=== PATIENT | male | born 1955 | race Hispanic/Latino ===

== ENCOUNTER → 2018-03-13 | Outpatient (CLI) | payer OTHER, MEDICARE ==
[~2018-03-13] VITALS: Ht 167.6 cm; Wt 107.0 kg
[~2018-03-13] MED LIST: REGADENOSON 0.4 MG/5 ML PF SYG IVP SCH
== END | disposition home or self-care (01) ==
LOC: SHCH 11:00
PROVIDERS: ATTEND Internal Medicine Cardiovascular Disease
DX: I25.10 Atherosclerotic heart disease of native coronary artery without angina pectoris (principal); I25.89 Other forms of chronic ischemic heart disease
CPT/HCPCS: 78452; 93017; 96374; A9500 ×2; J2785

== ENCOUNTER → 2021-06-12 | Outpatient (CLI) | payer OTHER, MEDICARE | END | disposition home or self-care (01) | LOC: SLP 20:30 | PROVIDERS: ATTEND Family Medicine | DX: G47.33 Obstructive sleep apnea (adult) (pediatric) (principal) | CPT/HCPCS: 95810; 95811 ==

== ENCOUNTER → 2021-07-04 | Outpatient (CLI) | payer OTHER, MEDICARE | END | disposition home or self-care (01) | LOC: SLP 20:41 | PROVIDERS: ATTEND Family Medicine | DX: G47.33 Obstructive sleep apnea (adult) (pediatric) (principal) | CPT/HCPCS: 95811 ==

== ENCOUNTER 2022-03-08 12:46 | Observation (INO) | payer OTHER, MEDICARE ==
[~2022-03-08] VITALS: Ht 167.6 cm; Wt 109.0 kg
[2022-03-08] MEDS ORDERED: SOLU-MEDROL 125MG VIAL ONE (12:49)
[2022-03-08] MEDS ORDERED: EPINEPHRINE PF 1MG (1:1,000) 1 MG/ML AMP ONE (12:49)
[2022-03-08] MEDS ORDERED: AMIODARONE 150MG VIAL IV STA ×2 (13:21)
[2022-03-08 13:23] LABS: BASOPHILS % (AUTO) 0.3 % (0.0-5.0); EOSINOPHILS % (AUTO) 1.4 % (0.0-8.0); HEMATOCRIT 55.5 % (42-54); LYMPHOCYTES % (AUTO) 50.3 % (21.0-51.0); MEAN CORPUSCULAR HEMOGLOBIN 32.2 pg (27.0-33.0); MEAN CORPUSCULAR HGB CONC 35.1 g/dL (32.0-36.0); MEAN CORPUSCULAR VOLUME 91.7 fL (79-99); MONOCYTES % (AUTO) 4.2 % (3.0-13.0); NEUTROPHILS % (AUTO) 43.5 % (40.0-77.0); PLATELET COUNT (AUTO) 231 K/uL (130-400); RED BLOOD CELL COUNT(AUTO) 6.05 MIL/uL (4.50-6.20); RED CELL DISTRIBUTION WIDTH 12.9 % (11.0-15.5); WHITE BLOOD COUNT (AUTO) 11.3 K/uL (4.8-10.8)
[2022-03-08] MEDS ORDERED: FAMOTIDINE 20MG VIAL IV ONE (13:30)
[2022-03-08] MEDS ORDERED: 0.9%NACL 1000ML 1,000 ML IV STA (13:37)
[2022-03-08 14:02] LABS: B-TYPE NATRIURETIC PEPTIDE 34 pg/mL (0-100)
[2022-03-08 14:08] LABS: ALBUMIN 3.3 g/dL (3.5-5.0); CREATININE 1.8 mg/dL (0.5-1.5); MAGNESIUM 2.1 mg/dL (1.80-2.40); POTASSIUM 3.6 mmol/L (3.5-5.1); TOTAL PROTEIN, SERUM 7.1 g/dL (6.0-8.3)
[2022-03-08] MEDS ORDERED: ONDANSETRON 4MG INJ ONE (14:41)
[2022-03-08] MEDS ORDERED: ONDANSETRON 4MG INJ IVP ONE (15:00)
[2022-03-08] MEDS: DiphenhydrAMINE HCL 50 MG/ML VIAL IV SCH ×2 (15:57→20:50)
[2022-03-08] MEDS: SOLU-MEDROL 125MG VIAL IVP SCH ×2 (15:58→20:50)
[2022-03-08] MEDS ORDERED: HYDRALAZINE 20MG/ML VIAL IV PRN (16:00)
[2022-03-08] MEDS ORDERED: ONDANSETRON 4MG INJ IVP PRN (16:00)
[2022-03-08] MEDS ORDERED: LACTULOSE 20 GM/30 ML UDCUP PO PRN (16:00)
[2022-03-08] MEDS ORDERED: EPINEPHRINE 1MG/10ML(1:10,000) 0.1 MG/ML SYG IVP PRN (16:00)
[2022-03-08] MEDS ORDERED: ACETAMINOPHEN 325 MG TAB PO PRN (16:00)
[2022-03-08] MEDS ORDERED: LABETALOL 20MG SYG IV PRN (16:00)
[2022-03-08] MEDS: INSULIN HUMULIN R 100 UNIT/ML 3ML SQ SCH ×2 (16:16→21:15)
[2022-03-08 17:22] LABS: APPEARANCE,URINE CLEAR (CLEAR); BILIRUBIN,URINE NEGATIVE (NEGATIVE); COLOR,URINE YELLOW (YELLOW); GLUCOSE, URINE (UA) >=1000 mg/dL (NEGATIVE); KETONES,URINE 5 mg/dL (NEGATIVE); LEUKOCYTE ESTERASE ,URINE NEGATIVE Leu/uL (NEGATIVE); NITRATE,URINE NEGATIVE (NEGATIVE); OCCULT BLOOD,URINE TRACE-INTACT (NEGATIVE); PROTEIN,URINE 30 mg/dL (NEGATIVE); UROBILINOGEN,URINE 0.2 mg/dL (0.2-1.0)
[2022-03-08 17:31] LABS: BACTERIA,URINE None Seen /HPF (None Seen); WBC,URINE 0-1 /HPF (0-1)
[2022-03-08 17:32] LABS: MUCUS,URINE Rare LPF (None Seen); SQUAMOUS EPITHELIAL CELL,UR Rare /HPF (0-2)
[2022-03-08 18:44] VITALS: BP 82/58
[2022-03-08] MEDS: IPRATROPIUM/ALBUTEROL SULFATE 3 ML SOLUTION IH SCH ×2 (18:52→22:43)
[2022-03-08 19:50] VITALS: BP 104/60
[2022-03-08] MEDS ORDERED: FAMOTIDINE 20MG TAB PO SCH (21:00)
[2022-03-08] MEDS ORDERED: EMPA10TA PO (21:00)
[2022-03-08] MEDS ORDERED: METO50 PO (21:00)
[2022-03-08] MEDS ORDERED: METO50TA18 PO (21:00)
[2022-03-08] MEDS ORDERED: RIVA20TA PO (21:05)
[2022-03-08] MEDS ORDERED: GLIP1TAB5 PO (21:05)
[2022-03-08] MEDS ORDERED: LISI5TAB21 PO (21:05)
[2022-03-08] MEDS ORDERED: POTA-202 PO (21:05)
[2022-03-08] MEDS ORDERED: NITR0.4T50 SL (21:11)
[2022-03-08] MEDS ORDERED: ATOR10TA69 PO (21:11)
[2022-03-08] MEDS ORDERED: ALLO100T PO (21:11)
[2022-03-08 23:44] VITALS: BP 98/56
[2022-03-09] MEDS: IPRATROPIUM/ALBUTEROL SULFATE 3 ML SOLUTION IH SCH ×6 (02:12→22:21)
[2022-03-09 03:36] VITALS: BP 97/46
[2022-03-09 04:44] LABS: BASOPHILS % (AUTO) 0.1 % (0.0-5.0); EOSINOPHILS % (AUTO) 0.1 % (0.0-8.0); LYMPHOCYTES % (AUTO) 10.7 % (21.0-51.0); MEAN CORPUSCULAR HGB CONC 34.2 g/dL (32.0-36.0); MEAN CORPUSCULAR VOLUME 93.5 fL (79-99); MONOCYTES % (AUTO) 2.6 % (3.0-13.0); NEUTROPHILS % (AUTO) 86.2 % (40.0-77.0); PLATELET COUNT (AUTO) 193 K/uL (130-400); RED BLOOD CELL COUNT(AUTO) 5.35 MIL/uL (4.50-6.20); WHITE BLOOD COUNT (AUTO) 9.6 K/uL (4.8-10.8)
[2022-03-09] MEDS: SOLU-MEDROL 125MG VIAL IVP SCH ×4 (04:51→22:35)
[2022-03-09] MEDS: DiphenhydrAMINE HCL 50 MG/ML VIAL IV SCH ×4 (04:51→22:35)
[2022-03-09 05:07] LABS: CREATININE 1.9 mg/dL (0.5-1.5); MAGNESIUM 2.1 mg/dL (1.80-2.40); PHOSPHORUS 3.1 mg/dL (2.5-4.9); POTASSIUM 5.2 mmol/L (3.5-5.1); THYROID STIMULATING HORMONE 0.77 uIU/mL (0.36-3.74)
[2022-03-09 05:18] LABS: B-TYPE NATRIURETIC PEPTIDE 499 pg/mL (0-100)
[2022-03-09] MEDS: INSULIN HUMULIN R 100 UNIT/ML 3ML SQ SCH ×4 (06:33→20:11)
[2022-03-09] MEDS ORDERED: NITROGLYCERIN 0.4 MG SL TAB SL PRN (07:30)
[2022-03-09 08:46] VITALS: BP 117/77
[2022-03-09] MEDS ORDERED: CEFTRIAXONE 1G VIAL IVP SCH (09:00)
[2022-03-09] MEDS ORDERED: ENOXAPARIN SODIUM 40 MG/0.4 ML SYRINGE SQ SCH (09:00)
[2022-03-09] MEDS: FAMOTIDINE 20MG TAB PO SCH (09:08)
[2022-03-09] MEDS: RIVAROXABAN 20 MG TABLET PO SCH (09:08)
[2022-03-09] MEDS: ALLOPURINOL 100 MG TABLET PO SCH ×2 (09:08→20:05)
[2022-03-09] MEDS: METOPROLOL TARTRATE 50 MG TAB PO SCH (09:09)
[2022-03-09 10:12] LABS: APPEARANCE,URINE CLEAR (CLEAR); BILIRUBIN,URINE NEGATIVE (NEGATIVE); COLOR,URINE COLORLESS (YELLOW); GLUCOSE, URINE (UA) >=1000 mg/dL (NEGATIVE); KETONES,URINE NEGATIVE (NEGATIVE); LEUKOCYTE ESTERASE ,URINE NEGATIVE Leu/uL (NEGATIVE); NITRATE,URINE NEGATIVE (NEGATIVE); OCCULT BLOOD,URINE SMALL (NEGATIVE); PROTEIN,URINE 10 mg/dL (NEGATIVE); UROBILINOGEN,URINE 0.2 mg/dL (0.2-1.0)
[2022-03-09 10:31] LABS: RBC,URINE 0-1 /HPF (0-1); SQUAMOUS EPITHELIAL CELL,UR RARE /HPF (0-2); WBC,URINE 0-1 /HPF (0-1)
[2022-03-09 12:20] VITALS: BP 111/72
[2022-03-09 16:54] VITALS: BP 114/73
[2022-03-09] MEDS: 0.9%NACL 1000ML 1,000 ML IV SCH (17:42)
[2022-03-09 20:17] VITALS: BP 108/67
[2022-03-09] MEDS ORDERED: METOPROLOL TARTRATE 50 MG TAB PO SCH (21:00)
[2022-03-09] MEDS ORDERED: ATORVASTATIN 10 MG TABLET PO SCH (21:00)
[2022-03-09 23:45] VITALS: BP 93/54
[2022-03-10] MEDS: IPRATROPIUM/ALBUTEROL SULFATE 3 ML SOLUTION IH SCH ×2 (01:52→06:27)
[2022-03-10 03:45] VITALS: BP 94/45
[2022-03-10 03:49] LABS: HEMATOCRIT 42.3 % (42-54); MEAN CORPUSCULAR HEMOGLOBIN 31.9 pg (27.0-33.0); MEAN CORPUSCULAR VOLUME 93.8 fL (79-99); RED BLOOD CELL COUNT(AUTO) 4.51 MIL/uL (4.50-6.20); RED CELL DISTRIBUTION WIDTH 13.3 % (11.0-15.5); WHITE BLOOD COUNT (AUTO) 9.3 K/uL (4.8-10.8)
[2022-03-10 03:55] LABS: CREATININE 1.6 mg/dL (0.5-1.5); POTASSIUM 4.1 mmol/L (3.5-5.1)
[2022-03-10] MEDS: SOLU-MEDROL 125MG VIAL IVP SCH ×2 (04:00→09:16)
[2022-03-10] MEDS: DiphenhydrAMINE HCL 50 MG/ML VIAL IV SCH ×2 (04:00→09:18)
[2022-03-10] MEDS: 0.9%NACL 1000ML 1,000 ML IV SCH (06:20)
[2022-03-10] MEDS: INSULIN HUMULIN R 100 UNIT/ML 3ML SQ SCH ×2 (06:22→12:07)
[2022-03-10 07:09] VITALS: BP 101/60
[2022-03-10] MEDS: METOPROLOL TARTRATE 50 MG TAB PO SCH (09:17)
[2022-03-10] MEDS: FAMOTIDINE 20MG TAB PO SCH (09:17)
[2022-03-10] MEDS: ALLOPURINOL 100 MG TABLET PO SCH (09:17)
[2022-03-10] MEDS: RIVAROXABAN 20 MG TABLET PO SCH (09:18)
[2022-03-10] MEDS ORDERED: IPRATROPIUM/ALBUTEROL SULFATE 3 ML SOLUTION IH SCH (12:00)
[2022-03-10 12:23] VITALS: BP 100/63
[2022-03-10] MEDS ORDERED: METH4TAB3 PO (14:58)
== END 2022-03-10 15:50 | disposition home or self-care (01) ==
LOC: EDH 12:46 → EDHIP 15:38 → 4AH 18:42
PROVIDERS: ADMIT Internal Medicine Critical Care Medicine; ATTEND Internal Medicine Critical Care Medicine
DX: T63.441A Toxic effect of venom of bees, accidental (unintentional), initial encounter (principal); T78.2XXA Anaphylactic shock, unspecified, initial encounter; L50.9 Urticaria, unspecified; I48.20 Chronic atrial fibrillation, unspecified; N17.9 Acute kidney failure, unspecified; D75.1 Secondary polycythemia; E11.9 Type 2 diabetes mellitus without complications; R31.9 Hematuria, unspecified; I11.0 Hypertensive heart disease with heart failure; I50.30 Unspecified diastolic (congestive) heart failure; I44.7 Left bundle-branch block, unspecified; I47.20 Ventricular tachycardia, unspecified; I25.10 Atherosclerotic heart disease of native coronary artery without angina pectoris; M10.9 Gout, unspecified; E88.09 Other disorders of plasma-protein metabolism, not elsewhere classified; E11.65 Type 2 diabetes mellitus with hyperglycemia; E66.01 Morbid (severe) obesity due to excess calories; E78.5 Hyperlipidemia, unspecified; Z68.38 Body mass index [BMI] 38.0-38.9, adult; Z79.01 Long term (current) use of anticoagulants; Z95.0 Presence of cardiac pacemaker; Z95.5 Presence of coronary angioplasty implant and graft; Z79.899 Other long term (current) drug therapy; Z98.890 Other specified postprocedural states
CPT/HCPCS: 96374; 96372 ×3; 96375; 83735 ×2; 84484; 80053; 83880 ×2; 85025 ×2; 82948 ×8; 81001 ×2; 36415 ×3; 71045; 99291; 93005; 94640 ×9; 94660 ×2; 94664; 96376 ×2; 84443; 84100; 84132; 80048 ×2; 83605; 93306; 92610; 84145; 85027; G0378 ×44; J1200 ×6; J3490; J2930 ×7; J0171; J2405; J1815 ×6

== ENCOUNTER → 2023-02-21 | Outpatient (CLI) | payer OTHER, MEDICARE ==
[~2023-02-21] VITALS: Ht 167.6 cm; Wt 104.8 kg
[~2023-02-21] MED LIST changes: +ALLO100T PO; +ATOR10TA69 PO; +EMPA10TA PO; +GLIP1TAB5 PO; +METH4TAB3 PO; +METO50 PO; +METO50TA18 PO; +NITR0.4T50 SL; +POTA-202 PO; -REGADENOSON 0.4 MG/5 ML PF SYG IVP SCH; +RIVA20TA PO
[2023-02-21 14:29] LABS: BASOPHILS # (AUTO) 0.04 K/uL (0.00-0.20); BASOPHILS % (AUTO) 0.6 % (0.0-5.0); EOSINOPHILS # (AUTO) 0.12 K/uL (0.00-0.70); EOSINOPHILS % (AUTO) 1.8 % (0.0-8.0); HEMATOCRIT 49.2 % (42-54); IMMATURE GRANULOCYTE ABSOLUTE 0.01 K/uL (0-1); LYMPHOCYTES # (AUTO) 2.3 K/uL (1.0-4.8); LYMPHOCYTES % (AUTO) 33.7 % (21.0-51.0); MEAN CORPUSCULAR HGB CONC 33.5 g/dL (32.0-36.0); MEAN CORPUSCULAR VOLUME 92.3 fL (79-99); MONOCYTES # (AUTO) 0.6 K/uL (0.1-1.0); MONOCYTES % (AUTO) 8.2 % (3.0-13.0); NEUTROPHILS # (AUTO) 3.8 K/uL (1.8-7.7); NEUTROPHILS % (AUTO) 55.6 % (40.0-77.0); PLATELET COUNT (AUTO) 174 K/uL (130-400); RED BLOOD CELL COUNT(AUTO) 5.33 MIL/uL (4.50-6.20); RED CELL DISTRIBUTION WIDTH 13.2 % (11.0-15.5); WHITE BLOOD COUNT (AUTO) 6.9 K/uL (4.8-10.8)
[2023-02-21 14:39] LABS: CREATININE 1.2 mg/dL (0.5-1.5); INR 1.03 (0.85-1.15); POTASSIUM 4.2 mmol/L (3.5-5.1); PROTHROMBIN TIME 11.9 SEC (9.6-11.6)
[2023-02-21 14:40] LABS: PARTIAL THROMBOPLASTIN TIME 29.6 SEC (26.3-35.5)
[2023-02-21 15:01] VITALS: BP 119/77; PULSE 66; RESP 18
== END | disposition home or self-care (01) ==
LOC: DAH 10:00 → EDSTATUS 13:00
PROVIDERS: ATTEND Internal Medicine Cardiovascular Disease
DX: Z01.818 Encounter for other preprocedural examination (principal); I49.5 Sick sinus syndrome; Z79.01 Long term (current) use of anticoagulants
CPT/HCPCS: 36415; 80048; 85025; 85610; 85730; 93005

== ENCOUNTER 2023-03-17 06:38 | Day surgery (SDC) | payer OTHER ==
[2023-03-15 08:51] LABS: BASOPHILS # (AUTO) 0.03 K/uL (0.00-0.20); BASOPHILS % (AUTO) 0.5 % (0.0-5.0); EOSINOPHILS # (AUTO) 0.11 K/uL (0.00-0.70); HEMATOCRIT 49.7 % (42-54); IMMATURE GRANULOCYTE ABSOLUTE 0.01 K/uL (0-1); LYMPHOCYTES # (AUTO) 1.9 K/uL (1.0-4.8); LYMPHOCYTES % (AUTO) 33.9 % (21.0-51.0); MEAN CORPUSCULAR HEMOGLOBIN 30.8 pg (27.0-33.0); MEAN CORPUSCULAR HGB CONC 33.2 g/dL (32.0-36.0); MEAN CORPUSCULAR VOLUME 92.7 fL (79-99); MONOCYTES # (AUTO) 0.4 K/uL (0.1-1.0); MONOCYTES % (AUTO) 6.8 % (3.0-13.0); NEUTROPHILS # (AUTO) 3.1 K/uL (1.8-7.7); NEUTROPHILS % (AUTO) 56.6 % (40.0-77.0); PLATELET COUNT (AUTO) 156 K/uL (130-400); RED BLOOD CELL COUNT(AUTO) 5.36 MIL/uL (4.50-6.20); RED CELL DISTRIBUTION WIDTH 13.3 % (11.0-15.5); WHITE BLOOD COUNT (AUTO) 5.5 K/uL (4.8-10.8)
[2023-03-15 08:58] LABS: CREATININE 1.3 mg/dL (0.5-1.5); POTASSIUM 4.1 mmol/L (3.5-5.1)
[2023-03-15 09:00] LABS: INR 1.05 (0.85-1.15); PROTHROMBIN TIME 12.1 SEC (9.6-11.6)
[2023-03-15 09:01] LABS: PARTIAL THROMBOPLASTIN TIME 33.6 SEC (26.3-35.5)
[2023-03-15 09:31] VITALS: BP 130/72; PULSE 67; RESP 20
[~2023-03-17] VITALS: Ht 165.1 cm; Wt 106.4 kg
[2023-03-17] VITALS (9 sets, daily range): BP systolic 108–144; BP diastolic 64–81; PULSE 63–84; RESP 14–18
[~2023-03-17 06:38] MED LIST changes: -METH4TAB3 PO; -METO50TA18 PO
[2023-03-17] MEDS ORDERED: 0.9%NACL 1000ML 1,000 ML IV ONE ×2 (07:50→07:51)
[2023-03-17] MEDS ORDERED: VANCOMYCIN 1G/250ML KIT 500 ML IV ONE (08:27)
[2023-03-17] MEDS ORDERED: LIDOCAINE HCL 1% 20 ML VIAL ONE (08:27)
[2023-03-17] MEDS ORDERED: BACITRACIN 1 EACH PACKET TP ONE (08:27)
[2023-03-17] MEDS ORDERED: BUPIVACAINE/PF 0.25% 30ML VIAL IJ ONE (08:28)
[2023-03-17] MEDS ORDERED: MEPERIDINE-PF 25 MG/ML SYG ONE ×2 (09:11→09:23)
[2023-03-17] MEDS ORDERED: MIDAZOLAM HCL 1 MG/ML 2ML VIAL ONE ×2 (09:12→09:23)
[2023-03-17] MEDS ORDERED: TRAM50TA4 PO (09:56)
[2023-03-17] MEDS ORDERED: ACETAMINOPHEN WITH CODEINE 1 TAB TAB PO PRN (10:00)
[2023-03-17] MEDS ORDERED: ACETAMINOPHEN 500 MG TABLET PO PRN (10:00)
== END 2023-03-17 13:05 | disposition home or self-care (01) ==
LOC: DAH 06:38
PROVIDERS: ATTEND Internal Medicine Cardiovascular Disease
DX: Z45.010 Encounter for checking and testing of cardiac pacemaker pulse generator [battery] (principal); I49.5 Sick sinus syndrome; I48.21 Permanent atrial fibrillation; I35.1 Nonrheumatic aortic (valve) insufficiency; I44.7 Left bundle-branch block, unspecified; I10 Essential (primary) hypertension; E78.5 Hyperlipidemia, unspecified; E11.9 Type 2 diabetes mellitus without complications; E66.9 Obesity, unspecified; M10.9 Gout, unspecified; I25.10 Atherosclerotic heart disease of native coronary artery without angina pectoris; Z79.899 Other long term (current) drug therapy; Z79.01 Long term (current) use of anticoagulants; Z98.890 Other specified postprocedural states; Z95.5 Presence of coronary angioplasty implant and graft; Z90.49 Acquired absence of other specified parts of digestive tract; Z82.49 Family history of ischemic heart disease and other diseases of the circulatory system; Z88.0 Allergy status to penicillin; Z68.37 Body mass index [BMI] 37.0-37.9, adult
CPT/HCPCS: 80048; 85025; 85610; 85730; 36415; 93005; 33228; 82948 ×2; 93308; C1785; J7030 ×2; J3490; J2250 ×2; J3370; J2175 ×2; A4215; A4222; A4221; A4663; A4216; A4606; A4223 ×3; 99156; 99157; J0665

== ENCOUNTER → 2024-03-16 | Outpatient (CLI) | payer OTHER ==
[~2024-03-16] MED LIST changes: +TRAM50TA4 PO
== END | disposition home or self-care (01) ==
LOC: SHCH 09:28
PROVIDERS: ATTEND Internal Medicine Cardiovascular Disease
DX: I08.8 Other rheumatic multiple valve diseases (principal); I25.5 Ischemic cardiomyopathy
CPT/HCPCS: 93306